=== PATIENT | male | born 1960 | race Caucasian/White ===

== ENCOUNTER → 2019-08-29 09:13 | Outpatient (CLI) | payer OTHER, SELFPAY ==
--- NOTE | 2019-08-29 | DI.RAD.S_ITS ---
PROCEDURE: XR CLAVICLE RT INDICATIONS: right medial clavical mass TECHNIQUE: 2 views of the clavicle were acquired. COMPARISON: [facility] [place], [place], XR CERVICAL SPINE 2 OR 3 VIEWS, 02/13/2018, 10:52. FINDINGS: Bones: No fractures or dislocations. No suspicious bony lesions. 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 Glenohumeral degenerative spurring and sclerosis also noted. No definite medial clavicle osseous destruction is identified. Cross-sectional imaging could be helpful Soft tissues: No suspicious soft tissue calcifications. IMPRESSION: No bony abnormality. For further evaluation of clinically reported medial right clavicle mass, recommend cross-sectional imaging with contrast-enhanced CT or MRI Right shoulder joint degeneration Dictated by: Constantine Da Silva M.D. on 08/29/2019 at 9:55 Approved by: Constantine Da Silva M.D. on 08/29/2019 at 9:57
== END ==
PROVIDERS: Visit Provider Family Medicine
DX: R22.2 Localized swelling, mass and lump, trunk (principal); M19.011 Primary osteoarthritis, right shoulder
CPT/HCPCS: 73000

== ENCOUNTER → 2019-09-04 09:32 | Outpatient (CLI) | payer OTHER, SELFPAY ==
[2019-09-04 10:17] LABS: BUN Creatinine Ratio 17.5 (6-22); Blood Urea Nitrogen 21 mg/dL (9-20); Estimated Glomerular Filt Rate > 60.0 mL/min (>60)
--- NOTE | 2019-09-04 10:46 | DI.CT.S_ITS ---
PROCEDURE: CT CHEST W CON INDICATIONS: RIGHT CLAVICULAR FULLNESS TECHNIQUE: After the administration of intravenous contrast, 5 mm thick sections acquired from the pulmonary apices to the posterior costophrenic angles. 1 mm axial lung, 5 mm thick coronal and sagittal reformats and 7 mm axial MIP were acquired. For radiation dose reduction, the following was used: automated exposure control, adjustment of mA and/or kV according to patient size. COMPARISON: None. FINDINGS: Image quality: Excellent. Lungs and pleura: No acute air space opacities. No pleural effusions or pneumothorax. Central and peripheral airways are patent and normal in caliber. Mediastinum: Heart size is normal. No pericardial effusion. No mediastinal or hilar adenopathy by size criteria. Thoracic aorta and central pulmonary arteries are normal in size. Esophagus is normal in caliber. No hiatal hernia. Bones and chest wall: There is enlargement of the right sternoclavicular joint. No bony or soft tissue mass. There is moderate acromioclavicular joint degeneration. No suspicious bony lesions. No vertebral body compression fractures. No axillary or supraclavicular adenopathy by size criteria. Thyroid gland is normal. Abdomen: Visualized upper abdominal solid organs appear normal. Upper abdominal bowel loops are normal in caliber. There is hepatic steatosis. IMPRESSION: 1. Enlargement of the right sternoclavicular joint. Differential diagnosis includes degenerative joint disease versus septic arthritis. Recommend clinical correlation. 2. No pulmonary nodules, infiltrate or pleural effusion. 3. No lymphadenopathy. 4. Hepatic steatosis. Dictated by: Saeed Turner M.D. on 09/04/2019 at 15:17 Approved by: Saeed Turner M.D. on 09/04/2019 at 16:09
== END ==
PROVIDERS: PCP Family Medicine; Visit Provider Family Medicine
DX: M25.811 Other specified joint disorders, right shoulder (principal); M19.011 Primary osteoarthritis, right shoulder; K76.0 Fatty (change of) liver, not elsewhere classified
CPT/HCPCS: 36415; 71260; 82565; 84520; Q9967

== ENCOUNTER → 2020-03-02 06:48 | Outpatient (CLI) | payer OTHER, SELFPAY ==
--- NOTE | 2020-03-02 | DI.US.S_ITS ---
PROCEDURE: US SCROTUM INDICATIONS: LEFT TESTICULAR LUMP TECHNIQUE: Real-time scanning was performed of the scrotum and testicles, with image documentation. Color and pulse Doppler interrogation was performed of both testicles. COMPARISON: None. FINDINGS: Right: Testicle is normal in size at the 3.1 x 3.7 x 5.1 cm, and homogenous in echotexture. Epididymis is normal in overall size and morphology. No hydrocele or varicoceles. Overlying scrotal skin is normal in thickness. There is a 1.6 x 1.6 x 1.3 cm epididymal head cyst on the right Left: Testicle is normal in size at 3.0 x 3.5 x 4.8 cm, and homogeneous in echotexture. Epididymis is normal in overall size and morphology. No hydrocele or varicoceles. Overlying scrotal skin is normal in thickness. There is a 2.2 x 2.2 x 2.6 cm epididymal head septated cyst on the left. Doppler: Color and pulse Doppler demonstrate normal and symmetric arterial flow in both testicles. IMPRESSION: No testicular mass lesion found. Bilateral epididymal head cysts are present, with the larger cyst on the left containing a single internal septation. A benign etiology is presumed by appearance. Dictated by: Stan Patel M.D. on 03/02/2020 at 8:33 Approved by: Stan Patel M.D. on 03/02/2020 at 8:54
== END ==
PROVIDERS: PCP Family Medicine; Referring Provider Family Medicine; Visit Provider Family Medicine
DX: N50.9 Disorder of male genital organs, unspecified (principal); N50.3 Cyst of epididymis
CPT/HCPCS: 76870

== ENCOUNTER → 2022-02-24 15:59 | Outpatient (CLI) | payer OTHER, SELFPAY ==
--- NOTE | 2022-02-24 | DI.RAD.S_ITS ---
PROCEDURE: XR CHEST 2V INDICATIONS: WHEEZE TECHNIQUE: 2 views of the chest were acquired. COMPARISON: CT, CT CHEST W CON, 09/04/2019, 10:20. FINDINGS: Surgical changes and devices: None. Lungs and pleura: Lungs are clear. No pleural effusions or pneumothorax. Mediastinum: Mediastinal contours are normal. Heart size is normal. Bones and chest wall: No suspicious bony abnormalities. Soft tissues appear unremarkable. IMPRESSION: No acute cardiopulmonary disease. Dictated by: Honorio Sprague [facility] Interpreted: Rikki Nation MD on 02/24/2022 at 16:18 Transcribed by: MILE on 02/24/2022 at 16:18 Approved by: Kofi Nation M.D. on 03/07/2022 at 8:08
== END ==
PROVIDERS: PCP Family Medicine; Referring Provider Family Medicine; Visit Provider Family Medicine
DX: R06.2 Wheezing (principal)
CPT/HCPCS: 71046

== ENCOUNTER → 2024-10-21 09:07 | Outpatient (CLI) | payer MEDICARE, OTHER, SELFPAY ==
--- NOTE | 2024-10-21 09:11 | DI.RAD.S_ITS ---
PROCEDURE: XR CHEST 2V INDICATIONS: Wheezing TECHNIQUE: 2 views of the chest were acquired. COMPARISON: [facility], CR, XR CHEST 2V, 02/24/2022, 15:58. FINDINGS: Surgical changes and devices: Surgical clips noted overlying the cervical spine. Lungs and pleura: Lungs are clear. No pleural effusions or pneumothorax. Mediastinum: Mediastinal contours are normal. Heart size is normal. Bones and chest wall: No suspicious bony abnormalities. Soft tissues appear unremarkable. IMPRESSION: No acute cardiopulmonary abnormality is seen. Dictated by: Miguel Reed M.D. on 10/21/2024 at 15:27 Approved by: Miguel Reed M.D. on 10/21/2024 at 15:28
== END ==
PROVIDERS: PCP Family Medicine; Referring Provider Family Medicine; Visit Provider Family Medicine
DX: R05.8 Other specified cough (principal); R06.2 Wheezing
CPT/HCPCS: 71046

== ENCOUNTER → 2024-11-13 08:14 | Outpatient (CLI) | payer MEDICARE, OTHER, SELFPAY | PROVIDERS: PCP Family Medicine; Referring Provider Family Medicine; Visit Provider Family Medicine | DX: R05.8 Other specified cough (principal); R06.2 Wheezing | CPT/HCPCS: 94060; 94726; 94729 ==